=== PATIENT | male | born 1980 | race American Indian/Alaskan Native ===

== ENCOUNTER 2018-04-30 02:11 | Emergency (ER) | payer SELFPAY ==
[2018-04-30 02:36] VITALS: RESP 18; O2SAT 98
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
[2018-04-30 04:13] VITALS: BP 155/87; PULSE 84; TEMP 98.5
[2018-04-30] MEDS ORDERED: Naproxen 500 MG TAB PO STA (04:15)
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
== END 2018-04-30 04:34 | disposition home or self-care (01) ==
LOC: H.ER 02:11
DX: S89.91XA Unspecified injury of right lower leg, initial encounter (principal); S69.91XA Unspecified injury of right wrist, hand and finger(s), initial encounter; Y08.89XA Assault by other specified means, initial encounter